=== PATIENT | male | born 1970 | race Caucasian/White ===

== ENCOUNTER → 2017-03-09 | Outpatient (CLI) | payer OTHER ==
--- NOTE | 2017-03-09 12:13 | XR ---
EXAMINATION TYPE: XR ankle complete LT, XR foot complete LT DATE OF EXAM: 03/09/2017 CLINICAL HISTORY: Twisting injury with pain TECHNIQUE: Frontal, lateral and oblique images of the left ankle and foot are obtained. COMPARISON: None. FINDINGS: There is no acute fracture/dislocation evident in the left ankle. The ankle mortise appea rs within normal limits. The overlying soft tissue appears unremarkable. There is no acute fracture or dislocation evident in the left foot. The joint spaces in the left jeanmarie t are preserved. Accessory ossicles near lateral plantar base of cuboid bone are present . Overlying soft tissue is unremarkable. IMPRESSION: There is no acute fracture or dislocation in the left ankle or foot.
== END | disposition home or self-care (01) ==
LOC: RADXRMAIN 11:39
PROVIDERS: ATTEND Emergency Medicine
DX: S93.402A Sprain of unspecified ligament of left ankle, initial encounter (principal); S93.602A Unspecified sprain of left foot, initial encounter

== ENCOUNTER → 2018-09-23 | Outpatient (CLI) | payer OTHER ==
--- NOTE | 2018-09-23 14:47 | XR ---
EXAMINATION TYPE: XR hand complete RT DATE OF EXAM: 09/23/2018 COMPARISON: NONE HISTORY: Pain TECHNIQUE: Three views are submitted. FINDINGS: The osseous structures are intact. The joint spaces are preserved and there is no acute fracture or dislocation. IMPRESSION: 1. No definite acute fracture or dislocation if symptoms persist, follow-up study in 7 to 10 days wo uld be suggested
== END | disposition home or self-care (01) ==
LOC: RADXRMAIN 14:06
PROVIDERS: ATTEND Emergency Medicine
DX: S67 Crushing injury of wrist, hand and fingers (principal)

== ENCOUNTER 2018-11-17 06:37 | Observation (INO) | payer OTHER ==
[2018-11-17 07:14] LABS: Basophils % (A) 1 %; Eosinophils # (A) 0.2 k/uL (0-0.7); Eosinophils % (A) 4 %; HCT 51.1 % (39.0-53.0); HGB 16.7 gm/dL (13.0-17.5); Lymphocytes # (A) 1.5 k/uL (1.0-4.8); Lymphocytes % (A) 26 %; MCH 29.2 pg (25.0-35.0); MCHC 32.6 g/dL (31.0-37.0); MCV 89.5 fL (80.0-100.0); Mean Platelet Volume 6.9; Monocytes # (A) 0.5 k/uL (0-1.0); Monocytes % (A) 9 %; Neutrophils # (A) 3.3 k/uL (1.3-7.7); Neutrophils % (A) 58 %; Platelet Count 223 k/uL (150-450); RBC 5.71 m/uL (4.30-5.90); RDW 13.4 % (11.5-15.5); WBC 5.8 k/uL (3.8-10.6)
[2018-11-17 07:22] LABS: INR 0.9 (<1.2); Partial Thromboplastin Time 25.9 sec (22.0-30.0); Prothrombin Time 10.1 sec (9.0-12.0)
[2018-11-17 07:27] LABS: ALT 38 U/L (21-72); AST 35 U/L (17-59); Albumin 4.3 g/dL (3.5-5.0); Alkaline Phosphatase 100 U/L (38-126); Anion Gap 8 mmol/L; Blood Urea Nitrogen 17 mg/dL (9-20); Calcium 9.4 mg/dL (8.4-10.2); Carbon Dioxide 25 mmol/L (22-30); Chloride 107 mmol/L (98-107); Glucose 91 mg/dL (74-99); Potassium 4.4 mmol/L (3.5-5.1); Sodium 140 mmol/L (137-145); Total Bilirubin 0.9 mg/dL (0.2-1.3); Total Protein 7.3 g/dL (6.3-8.2)
[2018-11-17] MEDS ORDERED: ASPIRIN 81 MG PO STA (07:27)
[2018-11-17] MEDS ORDERED: SODIUM CHLORIDE 0.9% 1,000 ML IV STA ×2 (07:27)
--- NOTE | 2018-11-17 07:33 | ED ---
Chest Pain HPI - General Chief Complaint: Chest Pain Stated Complaint: chest pain Time Seen by Provider: 11/17/18 06:58 Source: patient, RN notes reviewed, old records reviewed Mode of arrival: ambulatory Limitations: no limitations - History of Present Illness Initial Comments: Patient is a 47-year-old male who presents emergency department today with onset of left sided chest pain radiating up towards his jaw and his arm. Patient states symptoms started at 2 AM. He reports that woke him up from sleep. Patient states that he has a positive family history for heart disease. He reports that his father had a massive heart attacks at 60 years old. Patient states that he is a nonsmoker. Past medical history significant for severe scoliosis. He's had multiple surgeries on his spine to help straighten it. Patient states that he has no nausea or vomiting. He states the pain seems to be heaviness on his chest. Patient reports it's a 3 out of 10. Patient does relate to having some dyspnea on exertion. He does work manual labor job and states it seems to be somewhat harder to do his job and complains of increased fatigue. - Related Data Home Medications Medication Instructions Recorded Confirmed Calcium/Magnesium Liquid 15 ml PO DAILY 11/17/18 11/17/18 Multivitamins, Thera [Multivitamin 1 tab PO DAILY 11/17/18 11/17/18 (formulary)] Testosterone Cream Otc 1 applic TOPICAL DAILY 11/17/18 11/17/18 Allergies Allergy/AdvReac Type Severity Reaction Status Date / Time gluten AdvReac BLOATING Verified 11/17/18 06:58 Milk Containing Products AdvReac BLOATING Verified 11/17/18 06:58 [Dairy] morphine AdvReac Nausea & Verified 11/17/18 06:46 Vomiting Review of Systems ROS Statement: Those systems with pertinent positive or pertinent negative responses have been documented in the HPI. ROS Other: All systems not noted in ROS Statement are negative. EKG Findings - EKG Comments: EKG Findings:: EKG performed at 6:52 AM shows normal sinus rhythm with nonspecific ST-T wave abnormality. Abnormal EKG noted. Ventricular rate of 81 bpm. ND interval is 136 no seconds. QRS ration is 84 ms. QT QTc is 366/436 ms. Past Medical History Additional Past Medical History / Comment(s): scoliosis History of Any Multi-Drug Resistant Organisms: None Reported Additional Past Surgical History / Comment(s): right hand, knee, back Past Psychological History: No Psychological Hx Reported Smoking Status: Never smoker Past Alcohol Use History: Occasional Past Drug Use History: None Reported General Exam - General Exam Comments Initial Comments: 47-year-old male. Alert and oriented. No distress. Limitations: no limitations General appearance: alert, in no apparent distress Head exam: Present: atraumatic, normocephalic, normal inspection Eye exam: Present: normal appearance, PERRL, EOMI. Absent: scleral icterus, conjunctival injection, periorbital swelling ENT exam: Present: normal exam, mucous membranes moist Neck exam: Present: normal inspection. Absent: tenderness, meningismus, lymphadenopathy Respiratory exam: Present: normal lung sounds bilaterally. Absent: respiratory distress, wheezes, rales, rhonchi, stridor Cardiovascular Exam: Present: regular rate, normal rhythm, normal heart sounds. Absent: systolic murmur, diastolic murmur, rubs, gallop, clicks GI/Abdominal exam: Present: soft, normal bowel sounds. Absent: distended, tenderness, guarding, rebound, rigid Extremities exam: Present: normal inspection, full ROM, normal capillary refill. Absent: tenderness, pedal edema, joint swelling, calf tenderness Back exam: Present: normal inspection, tenderness, other (Patient has significant right-sided scoliosis. Scarring noted from surgical procedures on back.) Neurological exam: Present: alert, oriented X3, CN II-XII intact Psychiatric exam: Present: normal affect, normal mood Skin exam: Present: warm, dry, intact, normal color. 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 Symptoms started while he was sleeping and he woke up to the pain this morning. Patient states EKG was reviewed. Negative for any acute changes as no previous EKGs to compare from. He does have a significant history of scoliosis with correction of plates and rubs. Patient chest x-ray shows normal heart size but likely poor reaction are likely related to postop shoes on the right side of the chest. Patient's lungs were clear is no wheezing or coughing. His initial lab work including troponin are negative. He is a positive family history of heart disease. At this time with the onset of patient's pain and a prescription of nature radiating down the arm of the jaw would like to admit the Patient for repeat troponins and further cardiology evaluation. Patient's case discussed with Dr. Philippe Who discussed the case with [facility]. CXR report Findings may be chronic in the right chest with pleural reaction, postop change difficult to exclude airspace disease. Comparison with old films would be available could be of benefit. Consider her short-term interval follow-up. Disposition Clinical Impression: Chest pain Disposition: ADMITTED IP TO THIS HOSP Condition: Stable Is patient prescribed a controlled substance at d/c from ED?: No Referrals: None,Stated [Primary Care Provider] - 1-2 days Time of Disposition: 08:27
[2018-11-17 07:39] LABS: Creatine Kinase 44 U/L (55-170)
[2018-11-17 07:53] LABS: Creatine Kinase MB 0.4 ng/mL (0.0-2.4); Troponin I <0.012 ng/mL (0.000-0.034)
--- NOTE | 2018-11-17 08:18 | XR ---
EXAMINATION TYPE: XR chest 2V DATE OF EXAM: 11/17/2018 COMPARISON: None available HISTORY: Chest pain TECHNIQUE: Frontal and lateral views of the chest are obtained. FINDINGS: There is a scoliosis with posterior fixation rods in place in the thoracic lumbar spine. N o evident pneumothorax. Abnormal increased attenuation present in the right lung base. Chest wall def ormity noted, sixth rib has been removed. There is blunting of the right costophrenic angle. Heart si ze likely normal. There are cardiac leads. IMPRESSION: Findings may be chronic in the right chest with pleural reaction, postop change, difficu lt to exclude airspace disease. Comparison with old films if available could be of benefit, consider short interval follow-up.
[2018-11-17] MEDS ORDERED: NITROGLYCERIN SL TABS 0.4 MG TAB SUBLINGUAL PRN (08:28)
[2018-11-17] MEDS ORDERED: MORPHINE SULFATE 4 MG/ML SYRINGE IV PRN (08:28)
[2018-11-17 11:32] LABS: Creatine Kinase 38 U/L (55-170)
[2018-11-17 11:44] LABS: Creatine Kinase MB 0.3 ng/mL (0.0-2.4); Troponin I <0.012 ng/mL (0.000-0.034)
[2018-11-17] MEDS ORDERED: HEPARIN SODIUM,PORCINE 5,000 UNIT/ML 1 ML VIAL IV PRN (12:52)
[2018-11-17] MEDS ORDERED: HEPARIN SODIUM,PORCINE 5,000 UNIT/ML 1 ML VIAL IV ONE (12:52)
[2018-11-17] MEDS ORDERED: ALPRAZolam 0.5 MG TAB PO PRN (12:55)
[2018-11-17] MEDS ORDERED: SODIUM CHLORIDE 0.9% 1,000 ML in EMPTY BAG 1 BAG IV ONE (12:55)
[2018-11-17] MEDS ORDERED: ALPRAZolam 0.25 MG TAB PO PRN (12:55)
[2018-11-17] MEDS ORDERED: HEPARIN SOD,PORK IN 0.45% NACL 25,000 UNIT in 0.45% NACL 1 250ML.BAG IV SCH (13:00)
--- NOTE | 2018-11-17 13:27 | P.CRDCN ---
History of Present Illness History of present illness: This is a pleasant 47-year-old male past medical history significant for scoliosis status post surgery. He denies history of coronary artery disease , hypertension, dyslipidemia or diabetes mellitus. He has never followed with a sterile technician for any reason. His father suffered a massive heart attack at the age of 60 and his mother had atrial fibrillation. We've been asked to see him in consultation for symptoms of chest discomfort. He states he woke up around 1:00 this morning with a very heavy pressure sensation in the left precordial region with radiation into the left shoulder, left neck and jaw and down the left arm causing left hand numbness and tingling. He sat up moving around in bed trying to readjust his body to see if this would help and it did not improve his symptoms. He tossed and turned through the night and had a hard time sleeping throughout the night. He woke up in the morning and felt overall unwell. He states he felt very fatigued and still had a vague achy pressure sensation in the left precordial region. He denies associated shortness of breath, dizziness, palpitations, nausea, vomiting or diaphoresis. EKG on arrival reveals sinus mechanism with nonspecific changes in the inferior lateral leads. Chest x-ray reveals chronic right chest wall pleural reaction postop changes with no acute cardiopulmonary process. Laboratory data reviewed. He continues to describe a dull achy sensation in the left precordial region. He takes no daily cardiac medications. At the time of my exam: CONSTITUTIONAL: Denies fever. Denies chills. EYES: Denies blurred vision. Denies vision changes. Denies eye pain. EARS, NOSE, MOUTH & THROAT: Denies headache. Denies sore throat. Denies ear pain. CARDIOVASCULAR: Complains of chest pain. Denies shortness of breath. Denies orthopnea. Denies PND. Denies palpitations. RESPIRATORY: Denies cough. GASTROINTESTINAL: Denies abdominal pain. Denies diarrhea. Denies constipation. Denies nausea. Denies vomiting. MUSCULOSKELETAL: Denies myalgias. INTEGUMENTARY: Denies pruitis. Denies rash. NEUROLOGIC: Denies numbness. Denies tingling. Denies weakness. PSYCHIATRIC: Denies anxiety. Denies depression. ENDOCRINE: Denies fatigue. Denies weight change. Denies polydipsia. Denies polyurina. GENITOURINARY: Denies burning, hematuria or urgency with micturation. HEMATOLOGIC: Denies history of anemia. Denies bleeding. Blood pressure 156/94 heart rate 82 afebrile maintaining oxygen saturation on room air GENERAL: This is a 47-year-old male in no apparent distress at the time of my examination. HEENT: Head is atraumatic, normocephalic. Pupils are equal, round. Sclerae anicteric. Conjunctivae are clear. Mucous membranes of the mouth are moist. Neck is supple. There is no jugular venous distention. No carotid bruit is heard. LUNGS: Clear to auscultation no wheezes, rales or rhonchi. No chest wall tenderness is noted on palpation or with deep breathing. Scoliosis noted. HEART: Regular rate and rhythm without murmurs, rubs or gallops. S1 and S2 heard. ABDOMEN: Soft, nontender. Bowel sounds are heard. No organomegaly noted. EXTREMITIES: No evidence of peripheral edema and no calf tenderness noted. VASCULAR: Radial and dorsalis pedis pulses palpated, no evidence of clubbing. NEUROLOGIC: Patient is awake, alert and oriented x3. ASSESSMENT Unstable angina Hypertension Scoliosis PLAN Obtain 2-D echocardiogram and Doppler study to assess cardiac structure and function. Initiate the patient on a heparin infusion and Nitropaste. Start on small dose of losartan 25 mg daily. Continue to obtain serial enzymes to rule out an acute coronary event. Symptoms and his family history are quite concerning for coronary artery disease. We recommend proceeding with cardiac catheterization tomorrow morning to further assess for coronary artery disease. I have discussed the risks, benefits and alternative therapies for the above-mentioned procedure and for both sedation/analgesia as well as necessary blood product administration, if indicated, as they pertain to this patient. The patient has indicated understanding and acceptance of the risks and procedures discussed. Questions have been answered appropriately. He is agreeable to move forward with the above-stated procedure. This has been boarded for tomorrow with Dr. Hunter. Check lipid profile. Further recommendations to follow based upon clinical course. Thank you kindly for this consultation. Nurse Practitioner note has been reviewed, I agree with a documented findings and plan of care. Patient was seen and examined. Past Medical History Additional Past Medical History / Comment(s): Pt is a [employer]-see advance directive for blood restrictions, severe scoliosis, neurofibromytosis, current L knee bursitis History of Any Multi-Drug Resistant Organisms: None Reported Additional Past Surgical History / Comment(s): right hand tendon surgery, knee arthroscopy-pt cannot recall laterality, major back surgery for scoliosis at the age of 19yrs/rods/bone graft from hip Past Anesthesia/Blood Transfusion Reactions: No Reported Reaction Past Psychological History: No Psychological Hx Reported Additional Psychological History / Comment(s): Pt resides with his spouse. He is independent. Smoking Status: Never smoker Past Alcohol Use History: Occasional Past Drug Use History: None Reported - Past Family History Father Family Medical History: CVA/TIA, Myocardial Infarction ([place]), Sleep Apnea/CPAP/ BIPAP Additional Family Medical History / Comment(s): Father had a massive MA at the age of 60 yrs and survived. He had a CVA at the age of 63 and recovered. He from a complication with his CPap machine/collapsed a lung. Mother Family Medical History: AFIB, Rheumatoid Arthritis (RA) Additional Family Medical History / Comment(s): Mother had sepsis. Medications and Allergies Home Medications Medication Instructions Recorded Confirmed Type Calcium/Magnesium Liquid 15 ml PO DAILY 11/17/18 11/17/18 History Multivitamins, Thera [Multivitamin 1 tab PO DAILY 11/17/18 11/17/18 History (formulary)] Testosterone Cream Otc 1 applic TOPICAL DAILY 11/17/18 11/17/18 History Allergies Allergy/AdvReac Type Severity Reaction Status Date / Time gluten AdvReac BLOATING Verified 11/17/18 06:58 Milk Containing Products AdvReac BLOATING Verified 11/17/18 06:58 [Dairy] morphine AdvReac Nausea & Verified 11/17/18 06:46 Vomiting Physical Exam Vitals: Vital Signs Temp Pulse Pulse Pulse Resp BP BP 11/17/18 10:27 82 18 156/94 11/17/18 10:24 98.3 F 76 18 153/85 11/17/18 07:46 85 16 151/96 11/17/18 06:50 82 11/17/18 06:42 97.5 F L 90 16 166/102 Pulse Ox 11/17/18 10:27 97 11/17/18 10:24 11/17/18 07:46 97 11/17/18 06:50 11/17/18 06:42 97 Intake and Output 11/16/18 11/17/18 11/17/18 22:59 06:59 14:59 Other: # Voids 1 Weight 77.111 kg Results 11/17/18 06:45 11/17/18 06:45 Cardiac Enzymes 11/17/18 11/17/18 11/17/18 Range/Units 06:45 06:45 10:41 AST 35 (17-59) U/L CK-MB (CK-2) 0.4 0.3 (0.0-2.4) ng/mL Troponin I <0.012 <0.012 (0.000-0.034) ng/mL Coagulation 11/17/18 Range/Units 06:45 PT 10.1 (9.0-12.0) sec APTT 25.9 (22.0-30.0) sec CBC 11/17/18 Range/Units 06:45 WBC 5.8 (3.8-10.6) k/uL RBC 5.71 (4.30-5.90) m/uL Hgb 16.7 (13.0-17.5) gm/dL Hct 51.1 (39.0-53.0) % Plt Count 223 (150-450) k/uL Comprehensive Metabolic Panel 11/17/18 Range/Units 06:45 Sodium 140 (137-145) mmol/L Potassium 4.4 (3.5-5.1) mmol/L Chloride 107 (98-107) mmol/L Carbon Dioxide 25 (22-30) mmol/L BUN 17 (9-20) mg/dL Creatinine 0.69 (0.66-1.25) mg/dL Glucose 91 (74-99) mg/dL Calcium 9.4 (8.4-10.2) mg/dL AST 35 (17-59) U/L ALT 38 (21-72) U/L Alkaline Phosphatase 100 (38-126) U/L Total Protein 7.3 (6.3-8.2) g/dL Albumin 4.3 (3.5-5.0) g/dL Current Medications Generic Name Dose Route Start Last Admin Trade Name Freq PRN Reason Stop Dose Admin Aspirin 325 mg 11/18/18 09:00 Aspirin PO DAILY WILLIAM Sodium Chloride 1,000 mls @ 20 mls/hr 11/17/18 07:27 11/17/18 07:59 Saline 0.9% IV 11/18/18 07:26 20 mls/hr .Q24H STA Administration Morphine Sulfate 4 mg 11/17/18 08:28 Morphine Sulfate (Inj) IV Q5M PRN Pain Multivitamins 1 each 11/18/18 12:00 Theragran PO DAILY@1200 WILLIAM Nitroglycerin 0.4 mg 11/17/18 08:28 Nitrostat SUBLINGUAL Q5M PRN Chest Pain Calcium/Magnesium 15 ml 11/18/18 09:00 Liquid 15 Ml PO DAILY WILLIAM Testosterone Cream 1 applic 11/18/18 09:00 Otc TOPICAL DAILY WILLIAM Intake and Output 11/16/18 11/17/18 11/17/18 22:59 06:59 14:59 Other: # Voids 1 Weight 77.111 kg 11/17/18 06:45 11/17/18 06:45
[2018-11-17 13:40] LABS: Basophils % (A) 0 %; Eosinophils # (A) 0.3 k/uL (0-0.7); Eosinophils % (A) 4 %; HCT 48.7 % (39.0-53.0); Lymphocytes # (A) 1.5 k/uL (1.0-4.8); Lymphocytes % (A) 24 %; MCH 29.4 pg (25.0-35.0); MCHC 32.8 g/dL (31.0-37.0); MCV 89.6 fL (80.0-100.0); Mean Platelet Volume 6.8; Monocytes # (A) 0.6 k/uL (0-1.0); Monocytes % (A) 9 %; Neutrophils # (A) 3.8 k/uL (1.3-7.7); Neutrophils % (A) 60 %; Platelet Count 221 k/uL (150-450); RBC 5.44 m/uL (4.30-5.90); RDW 13.4 % (11.5-15.5); WBC 6.3 k/uL (3.8-10.6)
[2018-11-17 13:52] LABS: INR 0.9 (<1.2); Partial Thromboplastin Time 25.9 sec (22.0-30.0); Prothrombin Time 10.2 sec (9.0-12.0)
[2018-11-17] MEDS: LOSARTAN 25 MG TAB PO SCH (15:39)
[2018-11-17] MEDS: NITROGLYCERIN OINT 1 INCH/GM PACKET TOPICAL SCH ×3 (15:39→22:49)
--- NOTE | 2018-11-17 17:59 | P.HPIM ---
History of Present Illness H&P Date: 11/17/18 Chief Complaint: Chest pain Very pleasant 47-year-old female comes in with above-mentioned complaints. She said that she was sleeping and woke up around 1 AM with left-sided chest pain which she described as a pressure-like sensation along with left arm numbness and tingling. Patient's left and and thought that it would go away. But the pain persisted. Patient thus came to the ER for further urology management. Patient denied any shortness of breath, no dizziness, no cough, note tingling numbness of the other Ixodes, no lightheadedness no dizziness no itch or rash. ER course-patient's vitals were stable EKG shows nonspecific changes earlier leads and his labs were stable including the troponin levels. Patient was admitted to the hospitalist service and cardiology was consulted Review of Systems All systems: negative Past Medical History Additional Past Medical History / Comment(s): Pt is a [employer]-see advance directive for blood restrictions, severe scoliosis, neurofibromytosis, current L knee bursitis History of Any Multi-Drug Resistant Organisms: None Reported Additional Past Surgical History / Comment(s): right hand tendon surgery, knee arthroscopy-pt cannot recall laterality, major back surgery for scoliosis at the age of 19yrs/rods/bone graft from hip Past Anesthesia/Blood Transfusion Reactions: No Reported Reaction Past Psychological History: No Psychological Hx Reported Additional Psychological History / Comment(s): Pt resides with his spouse. He is independent. Smoking Status: Never smoker Past Alcohol Use History: Occasional Past Drug Use History: None Reported - Past Family History Father Family Medical History: CVA/TIA, Myocardial Infarction ([place]), Sleep Apnea/CPAP/ BIPAP Additional Family Medical History / Comment(s): Father had a massive NC at the age of 60 yrs and survived. He had a CVA at the age of 63 and recovered. He from a complication with his CPap machine/collapsed a lung. Mother Family Medical History: AFIB, Rheumatoid Arthritis (RA) Additional Family Medical History / Comment(s): Mother had sepsis. Medications and Allergies Home Medications Medication Instructions Recorded Confirmed Type Calcium/Magnesium Liquid 15 ml PO DAILY 11/17/18 11/17/18 History Multivitamins, Thera [Multivitamin 1 tab PO DAILY 11/17/18 11/17/18 History (formulary)] Testosterone Cream Otc 1 applic TOPICAL DAILY 11/17/18 11/17/18 History Allergies Allergy/AdvReac Type Severity Reaction Status Date / Time gluten AdvReac BLOATING Verified 11/17/18 06:58 Milk Containing Products AdvReac BLOATING Verified 11/17/18 06:58 [Dairy] morphine AdvReac Nausea & Verified 11/17/18 06:46 Vomiting Physical Exam Vitals: Vital Signs Temp Pulse Pulse Pulse Resp BP BP 11/17/18 12:00 76 18 11/17/18 10:27 82 18 156/94 11/17/18 10:24 98.3 F 76 18 153/85 11/17/18 07:46 85 16 151/96 11/17/18 06:50 82 11/17/18 06:42 97.5 F L 90 16 166/102 Pulse Ox 11/17/18 12:00 11/17/18 10:27 97 11/17/18 10:24 11/17/18 07:46 97 11/17/18 06:50 11/17/18 06:42 97 Intake and Output 11/17/18 11/17/18 11/17/18 06:59 14:59 22:59 Intake Total 118 Balance 118 Intake: Oral 118 Other: Voiding Method Toilet # Voids 1 Weight 77.111 kg On exam, alert and oriented x3. HEENT: Conjunctivae normal. eyes normal. NECK: No JVD. No thyroid enlargement. No LNs CARDIOVASCULAR: S1, S2 muffled. No murmur RESPIRATION: Breath sounds diminished in the bases. No rhonchi or crackles. No bronchial breathing. ABDOMEN: Soft, nontender . No guarding. no masses palpable. No ascites, No hepatosplenomegaly.Bowel sounds heard. LEGS: No edema. no swelling NERVOUS SYSTEM: Cranial N 2-12 grossly normal. Moves all 4 limbs. No focal deficits. No sensory deficit. No signs of cerebellar dysfucntion. Skin: no ulcer no rash Joints: No active swelling. No inflammation. Lymphatic system. No LN neck axilla or groin. Results CBC & Chem 7: 11/17/18 13:27 11/17/18 06:45 Labs: Abnormal Lab Results - Last 24 Hours (Table) 11/17/18 11/17/18 Range/Units 06:45 10:41 Total Creatine Kinase 44 L 38 L (55-170) U/L Thrombosis Risk Factor Assmnt - Choose All That Apply Any of the Below Risk Factors Present?: Yes Each Factor Represents 1 point: Age 41-60 years Other Risk Factors: No Other congenital or acquired thrombophilia - If yes, enter type in comment: No Thrombosis Risk Factor Assessment Total Risk Factor Score: 1 Thrombosis Risk Factor Assessment Level: Low Risk Assessment and Plan Assessment: - Unstable angina - Hypertension - Scoliosis Plan - We'll admit the patient to observation - Patient was started on heparin and Nitropaste by cardiology - Patient will have a echocardiogram - We'll trend the troponin levels - Depending upon the echo and the troponin levels, patient might end up getting us stress test or cardiac cath - Continue current management - DVT and GI prophylaxis - We'll order for lab work in the morning - Patient is an observation - Patient is full code Time with Patient: Greater than 30
[2018-11-17 19:59] LABS: Creatine Kinase 38 U/L (55-170)
[2018-11-17 20:12] LABS: Creatine Kinase MB 0.2 ng/mL (0.0-2.4); Troponin I <0.012 ng/mL (0.000-0.034)
[2018-11-18 04:36] LABS: Basophils % (A) 0 %; Eosinophils # (A) 0.3 k/uL (0-0.7); Eosinophils % (A) 4 %; HCT 47.8 % (39.0-53.0); HGB 15.4 gm/dL (13.0-17.5); Lymphocytes # (A) 1.7 k/uL (1.0-4.8); Lymphocytes % (A) 26 %; MCH 29.1 pg (25.0-35.0); MCHC 32.3 g/dL (31.0-37.0); Mean Platelet Volume 6.9; Monocytes # (A) 0.5 k/uL (0-1.0); Monocytes % (A) 8 %; Neutrophils # (A) 3.8 k/uL (1.3-7.7); Neutrophils % (A) 59 %; Platelet Count 226 k/uL (150-450); RBC 5.32 m/uL (4.30-5.90); RDW 13.3 % (11.5-15.5); WBC 6.5 k/uL (3.8-10.6)
[2018-11-18 04:50] LABS: Anion Gap 7 mmol/L; Blood Urea Nitrogen 18 mg/dL (9-20); Calcium 8.9 mg/dL (8.4-10.2); Carbon Dioxide 22 mmol/L (22-30); Chloride 109 mmol/L (98-107); Cholesterol 156 mg/dL (<200); Glucose 95 mg/dL (74-99); HDL Cholesterol 49 mg/dL (40-60); LDL Cholesterol,Calculated 88 mg/dL (0-99); Potassium 4.4 mmol/L (3.5-5.1); Sodium 138 mmol/L (137-145); Triglycerides 97 mg/dL (<150)
[2018-11-18] MEDS: NITROGLYCERIN OINT 1 INCH/GM PACKET TOPICAL SCH ×4 (06:04→22:52)
[2018-11-18] MEDS: LOSARTAN 25 MG TAB PO SCH (08:31)
[2018-11-18] MEDS: MULTIVITAMINS, THERA 1 EACH TAB PO SCH (08:31)
[2018-11-18] MEDS: MAGNESIUM PO SCH (08:51)
[2018-11-18] MEDS: TESTOSTERONE TOPICAL SCH (08:51)
[2018-11-18] MEDS: CALCIUM PO SCH (08:51)
[2018-11-18] MEDS ORDERED: ASPIRIN 325 MG TAB PO SCH (09:00)
--- NOTE | 2018-11-18 10:11 | ECHOF ---
Referral Reason: MEASUREMENTS -------- HEIGHT: 172.7 cm WEIGHT: 77.1 kg BP: IVSd: 1.2 cm (0.6 - 1.1) LVIDd: 3.6 cm (3.9 - 5.3) LVPWd: 1.0 cm (0.6 - 1.1) IVSs: 1.7 cm LVIDs: 2.8 cm LVPWs: 1.3 cm LAESV Index (A-L): 20.33 ml/m Ao Diam: 3.5 cm (2.0 - 3.7) AV Cusp: 1.7 cm (1.5 - 2.6) LA Diam: 3.3 cm (2.7 - 3.8) MV EXCURSION: 16.312 mm (> 18.000) MV EF SLOPE: 49 mm/s (70 - 150) EPSS: 0.8 cm MV E Jh: 0.79 m/s MV DecT: 219 ms MV A Jh: 0.87 m/s MV E/A Ratio: 0.91 RAP: 5.00 mmHg RVSP: 25.29 mmHg FINDINGS -------- Sinus rhythm. This was a technically good study. The left ventricular size is normal. There is mild concentric left ventricular hypertrophy. Overa ll left ventricular systolic function is normal with, an EF between 55 - 60 %. The right ventricle is normal in size and function. Normal LA size by volume 22+/-6 ml/m2. The right atrium is normal in size. The aortic valve is trileaflet and appears structurally normal. The mitral valve leaflets are mildly thickened. Mild mitral annular calcification present. There is trace mitral regurgitation. Trace tricuspid regurgitation present. The right ventricular systolic pressure, as measured by Dopp ler, is 25.29mmHg. Pulmonic valve appears structurally normal. The aortic root size is normal. IVC Not well visulized. The pericardium is normal. CONCLUSIONS -------- 1. Sinus rhythm. 2. This was a technically good study. 3. The left ventricular size is normal. 4. There is mild concentric left ventricular hypertrophy. 5. Overall left ventricular systolic function is normal with, an EF between 55 - 60 %. 6. The right ventricle is normal in size and function. 7. Normal LA size by volume 22+/-6 ml/m2. 8. The right atrium is normal in size. 9. The aortic valve is trileaflet and appears structurally normal. 10. The mitral valve leaflets are mildly thickened. 11. Mild mitral annular calcification present. 12. There is trace mitral regurgitation. 13. Trace tricuspid regurgitation present. 14. The right ventricular systolic pressure, as measured by Doppler, is 25.29mmHg. 15. Pulmonic valve appears structurally normal. 16. The aortic root size is normal. 17. IVC Not well visulized. 18. The pericardium is normal. OPERATIONS SYSTEMS SPECIALIST: Carolynn Porter RDCS
[2018-11-18] MEDS ORDERED: LIDOCAINE 1% INJ 10MG/ML (20 ML MDV) ONE (11:17)
[2018-11-18] MEDS ORDERED: LIDOCAINE 1% (PF) 10 MG/ML (30 ML SDV) SQ ONE (11:18)
[2018-11-18] MEDS ORDERED: fentaNYL (PF) 50 MCG/ML 2 ML AMP ONE (11:19)
[2018-11-18] MEDS ORDERED: fentaNYL (PF) 50 MCG/ML 2 ML AMP IVP ONE (11:22)
[2018-11-18] MEDS ORDERED: SODIUM CHLORIDE 0.9% 1,000 ML IV ONE (11:22)
[2018-11-18] MEDS ORDERED: IOPAMIDOL-370 125ML BTL INJ ONE (11:39)
[2018-11-18] MEDS ORDERED: RX INFO: IV CONTRAST WAS GIVEN 1 EACH MISC MISCELLANE PRN (11:46)
--- NOTE | 2018-11-18 15:34 | CC ---
CARDIAC CATHETERIZATION REPORT INDICATION: Unstable angina. PROCEDURE NOTE: After obtaining informed consent, left heart catheterization, coronary angiogram and LV gram were performed via the right femoral artery using standard Job catheters. The patient tolerated the procedure well without any obvious immediate complications. A femoral angiogram was performed and Angio-Seal was deployed for hemostasis. The patient has severe scoliosis. FINDINGS: 1. Hemodynamics. Left ventricular end-diastolic pressure is 8 to 12 mm. There is no significant gradient across the aortic valve. 2. Left ventriculogram. Left ventriculogram was performed in SMITH position and shows normal left ventricular size and systolic function with an ejection fraction of 65%. The aorta is free of aneurysm. ANGIOGRAPHIC DATA: 1. Left main coronary artery. Left main coronary artery is a normal-sized vessel and is free of stenosis. It divides into left anterior descending coronary artery and circumflex coronary artery. LAD and its branches, circumflex coronary artery and its branches are free of significant stenosis. 2. Right coronary artery is a large dominant vessel and is free of significant disease. CONCLUSIONS: 1. Normal coronary arteries. 2. Normal left ventricular function. PLAN: I reviewed angiographic data with the patient and told him that his chest discomfort is non-cardiac in origin and his coronaries are normal. MMODL / IJN: [id number] /
--- NOTE | 2018-11-18 17:27 | P.PN ---
Subjective Progress Note Date: 11/18/18 Today, the patient had a heart cath, which was negative for any significant blockage He does not complian of any chest pain, no sob Objective - Vital Signs Vital signs: Vital Signs Temp 98.2 F 11/18/18 08:00 Pulse 84 11/18/18 14:05 Resp 16 11/18/18 16:00 BP 131/75 11/18/18 14:05 Pulse Ox 97 11/18/18 08:00 Intake & Output 11/17/18 11/18/18 11/18/18 18:59 06:59 18:59 Intake Total 718 144.441 50 Balance 718 144.441 50 Intake: IV 50 Intake, IV Titration 144.441 Amount Heparin Sod,Pork in 0.45% 144.441 NaCl 25,000 unit In 0.45 % NaCl 1 250ml.bag @ 12 UNITS/KG/HR 9.25 mls/hr IV .Q24H WILLIAM Rx#: [id number] Oral 718 Other: Voiding Method Toilet Toilet Toilet # Voids 1 1 3 - Exam on exam, alert and oriented x3. HEENT: Conjunctivae normal. eyes normal. NECK: No JVD. No thyroid enlargement. No LNs CARDIOVASCULAR: S1, S2 muffled. No murmur RESPIRATION: Breath sounds diminished in the bases. No rhonchi or crackles. No bronchial breathing. ABDOMEN: Soft, nontender . No guarding. no masses palpable. No ascites, No hepatosplenomegaly.Bowel sounds heard. LEGS: No edema. no swelling NERVOUS SYSTEM: Cranial N 2-12 grossly normal. Moves all 4 limbs. No focal deficits. No sensory deficit. No signs of cerebellar dysfucntion. Skin: no ulcer no rash Joints: No active swelling. No inflammation. Lymphatic system. No LN neck axilla or groin. - Labs CBC & Chem 7: 11/18/18 04:06 11/18/18 04:06 Labs: Abnormal Lab Results - Last 24 Hours (Table) 11/17/18 11/17/18 11/18/18 Range/Units 19:05 21:55 04:06 APTT 41.2 H (22.0-30.0) sec Chloride 109 H (98-107) mmol/L Creatinine 0.65 L (0.66-1.25) mg/dL Total Creatine Kinase 38 L (55-170) U/L 11/18/18 Range/Units 04:06 APTT 44.7 H (22.0-30.0) sec Chloride (98-107) mmol/L Creatinine (0.66-1.25) mg/dL Total Creatine Kinase (55-170) U/L Assessment and Plan Assessment: - Unstable angina - Hypertension - Scoliosis Plan - Will monitor the patient overnight as per cardio recommendations - Shilpi neagtive - Will monitor the patient - Possible discharge tomorrow Time with Patient: Greater than 30
[2018-11-19 03:47] VITALS: PULSE 79
[2018-11-19 08:26] LABS: Basophils % (A) 1 %; Eosinophils # (A) 0.2 k/uL (0-0.7); Eosinophils % (A) 4 %; HCT 50.3 % (39.0-53.0); HGB 16.3 gm/dL (13.0-17.5); Lymphocytes # (A) 1.1 k/uL (1.0-4.8); Lymphocytes % (A) 19 %; MCHC 32.4 g/dL (31.0-37.0); MCV 89.7 fL (80.0-100.0); Monocytes # (A) 0.5 k/uL (0-1.0); Monocytes % (A) 8 %; Neutrophils # (A) 3.9 k/uL (1.3-7.7); Neutrophils % (A) 67 %; Platelet Count 233 k/uL (150-450); RDW 13.3 % (11.5-15.5); WBC 5.9 k/uL (3.8-10.6)
[2018-11-19] MEDS: LOSARTAN 25 MG TAB PO SCH (08:33)
[2018-11-19] MEDS ORDERED: ASPIRIN 81 MG PO SCH (09:00)
--- NOTE | 2018-11-19 09:13 | P.DS ---
Providers Date of admission: 11/17/18 09:43 Expected date of discharge: 11/19/18 Attending physician: Jayme Ervin Consults: 11/17/18 08:28 Consult Physician Urgent Consulting Provider: Howie Mckeon Consult Reason/Comments: Chest pain Do you want consulting provider notified?: Yes Primary care physician: Stated None Hospital Course: Discharge diagnosis - Chest pain-cardiac was ruled out normal coronaries - Hypertension - Scoliosis Brief data Very pleasant 47-year-old gentleman comes in for chest pain which woke him up from sleep. He describes the pain as left-sided pressure like along with left arm numbness and tingling he thought that the pain would go away and slept along the night. In the morning he woke up and he still was having pain he does came to the ER for further evaluation and management. Hospital course Patient was seen by cardiology who did a heart cath. Heart cath showed no significant coronary stenosis. His lab work was also normal including d-dimer, troponin and lipid panel. Patient was kept overnight after the heart cath. On 11/19/2018 Patient is feeling fine No chest pain no arm numbness No groin pain but discomfort which is getting better No groin swelling Patient was seen by cardiology who cleared him to be discharged. Patient will does be discharged home. He was instructed to find a primary care doctor and follow with him regularly. He was also asked to follow-up with cardiology on the date appointment was scheduled. Patient Condition at Discharge: Good Plan - Discharge Summary Discharge Rx Participant: No New Discharge Prescriptions: New Aspirin 81 mg PO DAILY chew Losartan [Cozaar] 25 mg PO DAILY #90 tab Continue Calcium/Magnesium Liquid 15 ml PO DAILY Multivitamins, Thera [Multivitamin (formulary)] 1 tab PO DAILY Testosterone Cream Otc 1 applic TOPICAL DAILY Discharge Medication List Calcium/Magnesium Liquid 15 ml PO DAILY 11/17/18 [History] Multivitamins, Thera [Multivitamin (formulary)] 1 tab PO DAILY 11/17/18 [History ] Testosterone Cream Otc 1 applic TOPICAL DAILY 11/17/18 [History] Aspirin 81 mg PO DAILY chew 11/18/18 [Rx] Losartan [Cozaar] 25 mg PO DAILY #90 tab 11/18/18 [Rx] Follow up Appointment(s)/Referral(s): None,Stated [Primary Care Provider] - 1-2 days Yazan Hunter MD [STAFF PHYSICIAN] - 11/23/18 3:45 pm Patient Instructions/Handouts: *Surgery [facility] - After Heart Catheterization - [facility]orer Instructions Activity/Diet/Wound Care/Special Instructions: See Activity Restriction Instructions If u have chest pain, racing heart, sob, lightheadedness, dizziness, pls call 911 or come to ER. Care Plan Goals (MU): DISCHRAGE PT IF CLEARED BY CARDIOLOGY Discharge Disposition: HOME SELF-CARE
--- NOTE | 2018-11-19 09:50 | PN ---
PROGRESS NOTE Mr. Camargo is a 47-year-old male who presented with symptoms of chest discomfort, underwent cardiac catheterization by Dr. Hunter yesterday that revealed no evidence of obstructive coronary artery disease with a preserved systolic function. He is doing well this morning. He denies any chest pain. No dizziness. No palpitation. He denies any nausea. He continues to be at this time on aspirin once a day, losartan 25 mg daily. PHYSICAL EXAMINATION: Blood pressure 137/80 with a heart rate in the 70s. LUNGS: Clear. Heart regular rate and rhythm, S1, S2. No S3. No rub. ABDOMEN: Soft, nontender. EXTREMITIES: No edema. LAB DATA: Revealed BUN and creatinine of 18 and 0.6, cholesterol 156, LDL of 88. IMPRESSION: 1. Chest discomfort with no evidence of obstructive coronary disease. 2. Hypertension. RECOMMENDATION: From the cardiac standpoint, the patient should be able to be discharged home today and follow up with Dr. Hunter in 1 week. MMODL / IJN: [id number] /
[2018-11-19 12:01] VITALS: BP 129/88; RESP 16; TEMP 97.8
[2018-11-19] MEDS: CALCIUM PO SCH (12:28)
[2018-11-19] MEDS: TESTOSTERONE TOPICAL SCH (12:28)
[2018-11-19] MEDS: MAGNESIUM PO SCH (12:28)
[2018-11-19] MEDS: MULTIVITAMINS, THERA 1 EACH TAB PO SCH (12:39)
== END 2018-11-19 15:36 | disposition home or self-care (01) ==
LOC: EC 06:37 → 1SOBS 09:43
PROVIDERS: ADMIT Hospitalist; ATTEND Hospitalist
DX: R07.89 Other chest pain (principal); I10 Essential (primary) hypertension; M41.9 Scoliosis, unspecified; R06.00 Dyspnea, unspecified; R53.83 Other fatigue; R94.31 Abnormal electrocardiogram [ECG] [EKG]; R07.2 Precordial pain; R20.0 Anesthesia of skin; R20.2 Paresthesia of skin; M79.602 Pain in left arm; M70.52 Other bursitis of knee, left knee; Q85.00 Neurofibromatosis, unspecified; Z88.5 Allergy status to narcotic agent; Z91.011 Allergy to milk products; Z91.018 Allergy to other foods; Z82.49 Family history of ischemic heart disease and other diseases of the circulatory system; Z82.61 Family history of arthritis; Z83.1 Family history of other infectious and parasitic diseases; Z82.3 Family history of stroke
CPT/HCPCS: 96365; 96366 ×2; 96376; 96361; 99285; 36415; 94760; 93005; 93306; 93458; 85379; 83880; 80061; 80053; 80048; 82550; 82553; 83735; 84484; 85025 ×3; 85610; 85730 ×2; 71046; G0378 ×3; C1760; C1894; C1769; J1644 ×2; J2001; J3010; Q9967

== ENCOUNTER → 2019-10-25 | Outpatient (CLI) | payer OTHER ==
--- NOTE | 2019-10-25 11:57 | XR ---
Lumbar spine HISTORY: Back pain, trauma one week prior, pain 3 views of the lumbar spine There is a marked S-shaped thoracic lumbar scoliosis. There are fixation rods present extending from the thoracic spine to the level of the mid lumbar spine. Rotatory component is present associated wit h the scoliosis. Lumbar vertebral bodies show preserved height. Bone mineralization is reduced. Spina bifida occulta suspected at S1, possible transitional vertebral body. IMPRESSION: Exam is limited however no acute fracture or subluxation is evident. Postprocedural matheus mixon.
--- NOTE | 2019-10-25 11:57 | XR ---
AP pelvis HISTORY: Trauma one week prior, pain Single frontal view of the pelvis Patient is rotated. Alignment, joint spaces are maintained. IMPRESSION: No acute fracture or dislocation evident. Rotated exam.
== END ==
LOC: RADXRMAIN 11:33
PROVIDERS: ATTEND Emergency Medicine
DX: S30.0XXD Contusion of lower back and pelvis, subsequent encounter (principal); R20.9 Unspecified disturbances of skin sensation; Z98.890 Other specified postprocedural states
CPT/HCPCS: 72100; 72170